=== PATIENT | female | born 1955 | race Two or more races ===

== ENCOUNTER 2017-04-02 17:35 | Emergency (ER) | payer MEDICAID, OTHER ==
[~2017-04-02] VITALS: Ht 157.5 cm; Wt 54.4 kg
[2017-04-02] MEDS ORDERED: LISINOPRIL (10MG) 10 MG TABLET PO SCH (18:30)
[2017-04-02 18:40] VITALS: BP 148/80
== END 2017-04-02 18:55 | disposition home or self-care (01) ==
LOC: ER 17:37
DX: I10 Essential (primary) hypertension (principal)
CPT/HCPCS: A4606; Z7610

== ENCOUNTER 2019-06-09 09:58 | Emergency (ER) | payer MEDICARE, MEDICAID ==
[~2019-06-09] VITALS: Ht 149.9 cm; Wt 52.6 kg
--- NOTE | 2019-06-09 10:00 | NUR ---
PT CAME INTO THE ED C/O HIGH BLOOD PRESSURE. UPON ASSESSMENT, BP AT 158/81. PT ENDORSES ON AND OFF CHEST PAIN 5/10 SINCE YESTERDAY . PT AAOX4, NO ACUTE DISTRESS NOTED.PT CONNECTED TO THE MONITOR AND POX.
[2019-06-09] MEDS ORDERED: LOSARTAN/HCTZ 50-12.5MG/ 1 EA TABLET PO ONE (10:30)
[2019-06-09] MEDS ORDERED: ACETAMINOPHEN 325 MG TABLET ONE (10:30)
[2019-06-09] MEDS ORDERED: ACETAMINOPHEN 325 MG TABLET PO ONE (10:30)
--- NOTE | 2019-06-09 10:32 | NUR ---
EKG AT BEDSIDE
--- NOTE | 2019-06-09 10:40 | NUR ---
IV LINE ESTABLISHED. BLOOD DRAWN AND SENT TO LAB. 20G RAC
[2019-06-09 10:42] LABS: BASOPHILS % (AUTO) 0.8 % (0.0-2.0); EOSINOPHILS % (AUTO) 2.2 % (0.0-6.0); HEMATOCRIT 43 % (33-45); LYMPHOCYTES # (AUTO) 1.5 /CMM (0.8-4.8); LYMPHOCYTES % (AUTO) 31.9 % (20.0-44.0); MEAN CORPUSCULAR HGB CONC 33 g/dl (31.0-36.0); MEAN CORPUSCULAR VOLUME 89 fL (82-100); MONOCYTES # (AUTO) 0.4 /CMM (0.1-1.30); MONOCYTES % (AUTO) 7.4 % (2.0-12.0); NEUTROPHILS # (AUTO) 2.8 /CMM (1.8-8.9); NEUTROPHILS % (AUTO) 57.7 % (43.0-81.0); PLATELET COUNT (AUTO) 191 /CMM (150-450); RED BLOOD CELL COUNT(AUTO) 4.87 MIL/uL (4.0-5.2); WHITE BLOOD COUNT (AUTO) 4.8 K/uL (4.3-11.0)
[2019-06-09 10:49] LABS: CALCIUM, SERUM 9.2 mg/dL (8.5-10.1); CARBON DIOXIDE 32 mmol/L (21-32); CHLORIDE 107 mmol/L (98-107); CREATININE 0.8 mg/dL (0.6-1.3); GLUCOSE 91 mg/dL (74-106); POTASSIUM 3.8 mmol/L (3.5-5.1); SODIUM SERUM 144 mmol/L (136-145); UREA NITROGEN, BLOOD 15 mg/dL (7-18)
--- NOTE | 2019-06-09 12:01 | NUR ---
Patient discharged to home in stable condition. Written and verbal after care instructions given. Patient verbalizes understanding of instruction. IV removed. Catheter intact and site benign. Pressure and 4x4 applied to site. No bleeding noted.
[2019-06-09 12:02] VITALS: BP 141/84
== END 2019-06-09 12:02 | disposition home or self-care (01) ==
LOC: ER 10:06
DX: I10 Essential (primary) hypertension (principal); E78.5 Hyperlipidemia, unspecified; R51 Headache
CPT/HCPCS: 36415; 70450-TC; 71045-TC; 80048-TC; 84484-TC; 85025-TC